=== PATIENT | male | born 1975 | race Caucasian/White ===

== ENCOUNTER 2024-10-01 09:47 | Emergency (ER) | payer SELFPAY ==
--- NOTE | 2024-10-01 10:37 | ERPHSYRPT ---
- History of Present Illness Time Seen by Provider: 10/01/24 10:26 Source: patient Exam Limitations: no limitations Physician History: Chest pain. Midsternal. Has been going on for 2 to 3 days. Family history of his father passing away from an CO. Patient is on blood pressure medication. Somewhat hypertensive here initially in triage 160/100. No falls or trauma. Patient has no known coronary artery disease. However he has had intermittent chest pain before. Diagnosed with atypical chest pain and hypertension. Therefore presents to the emergency department today. He has not tried anything to make it better or worse. He has not taken any aspirin today. He has taken his blood pressure medication as prescribed. Patient is taking PO well. Same number of urinations and defecations. The patient has no signs of altered mental status, nuchal rigidity, signs of meningitis. The patient is up-to-date on all vaccinations. Allergies/Adverse Reactions: No Known Drug Allergies Allergy (Unverified 10/01/24 10:25) Home Medications: Metoprolol Succinate 1 tab PO HS 10/01/24 [History] Telmisartan [Micardis] 1 tab PO DAILY 10/01/24 [History] - Nursing Vital Signs Nursing Vital Signs: Initial Vital Signs Pulse Rate 82 10/01/24 10:22 Respiratory Rate 18 10/01/24 10:22 Blood Pressure 152/104 10/01/24 10:22 O2 Sat by Pulse Oximetry 96 10/01/24 10:22 Pain Scale Pain Intensity 0 - Physical Exam Comments: 10/01/24 10:36 Review of Systems Constitutional: Negative for fever. HENT: Negative for congestion. Respiratory: Negative for shortness of breath. Cardiovascular: Midsternal chest pain Gastrointestinal: Negative for abdominal pain. Genitourinary: Negative for dysuria. Musculoskeletal: Negative for back pain. Skin: Negative for rash. Neurological: Negative for headaches. Psychiatric/Behavioral: Negative for behavioral problems. All other systems reviewed and are negative. Physical Exam Vitals signs and nursing note reviewed. Constitutional: Appearance: Patient is well-developed. HENT: Head: Normocephalic and atraumatic. Eyes: Conjunctiva/sclera: Conjunctivae normal. Neck: Musculoskeletal: Normal range of motion. Trachea: No tracheal deviation. Cardiovascular: Rate and Rhythm: Normal rate. Pulmonary: Effort: Pulmonary effort is normal. No respiratory distress. Abdominal: Palpations: Abdomen is soft. Musculoskeletal: General: No deformity. Skin: General: Skin is warm and dry. Neurological/ Psychiatric: Mental Status: Mental status, behavior, interaction with environment is appropriate for patient's age and condition - Course Nursing assessment & vital signs reviewed: Yes EKG Interpreted by Me: Sinus Rhythm (Sinus rhythm, rate 78, TN interval 178, QRS 80, QTc is 398, no STEMI) Ordered Tests: Active Orders 24 hr Category Date Time Status Chargeback Specialist STAT Care 10/01/24 10:27 Active EKG-ER Only STAT Care 10/01/24 10:26 Active IV Insertion STAT Care 10/01/24 10:26 Active CHEST 1 VIEW (PORTABLE) Stat Exams 10/01/24 10:26 Completed CBC W DIFF Stat Lab 10/01/24 10:50 Completed CK-Creatinine Phosphokinase Stat Lab 10/01/24 10:50 Completed CMP Stat Lab 10/01/24 10:50 Completed NT PRO BNPII Stat Lab 10/01/24 10:50 Completed TROPONIN Q4H Lab 10/01/24 10:50 Completed TROPONIN Q4H Lab 10/01/24 12:33 Completed TROPONIN Q4H Lab 10/01/24 18:30 Ordered Medication Summary Discontinued Medications Generic Name Dose Route Start Last Admin Trade Name Freq PRN Reason Stop Dose Admin Ketorolac Tromethamine 30 mg 10/01/24 10:27 10/01/24 11:16 Ketorolac Tromethamine 30 Mg/Ml Inj IV 10/01/24 10:28 30 mg STAT ONE Administration Ketorolac Tromethamine Confirm 10/01/24 11:15 Ketorolac Tromethamine 30 Mg/Ml Inj Administered 10/01/24 11:16 Dose 30 mg .ROUTE .STK-MED ONE Nitroglycerin 0.4 mg 10/01/24 10:26 Nitroglycerin 0.4 Mg (Ed) 0.4 Mg Tab.Subl SL 10/01/24 10:27 STAT ONE Ondansetron HCl 4 mg 10/01/24 10:26 Ondansetron Hcl 4 Mg/2 Ml Vial IV 10/01/24 10:27 STAT ONE Lab/Rad Data: Laboratory Result Diagrams 10/01/24 10:50 10/01/24 10:50 Laboratory Results 10/01/24 10/01/24 10/01/24 Range/Units 12:33 10:50 10:50 WBC (4.23-9.07) x10^3/uL RBC (4.63-6.08) x10^6/uL Hgb (13.7-17.5) g/dL Hct (40.1-51.0) % MCV (79.0-92.2) fL MCH (25.7-32.2) pg MCHC (32.3-36.5) g/dL RDW (11.6-14.4) % Plt Count (163-337) x10^3/uL MPV (9.4-12.4) fL Gran % (34.0-67.9) % Immature Gran % (Auto) (0.001-0.429) % Nucleat RBC Rel Count (0.00-0.2) % Eos # (Auto) (0.04-0.54) x10^3/uL Immature Gran # (Auto) (0.001-0.031) x10^3u/L Absolute Lymphs (auto) (1.32-3.57) x10^3/uL Absolute Monos (auto) (0.30-0.82) x10^3/uL Absolute Nucleated RBC (0.00-0.012) x10^3u/L Lymphocytes % (21.8-53.1) % Monocytes % (5.3-12.2) % Eosinophils % (0.8-7.0) % Basophils % (0.2-1.2) % Absolute Granulocytes (1.78-5.38) x10^3/uL Basophils # (0.01-0.08) x10^3/uL Sodium 138 (135-145) mmol/L Potassium 3.9 (3.5-5.1) mmol/L Chloride 102 (98-107) mmol/L Carbon Dioxide 27 (22-30) mmol/L Anion Gap 12.5 (5-15) MEQ/L BUN 10 (9-20) mg/dL Creatinine 0.91 (0.66-1.25) mg/dL Estimated GFR 104.6 ML/MIN Glucose 115 H (74-106) mg/dL Calcium 9.3 (8.4-10.2) mg/dL Total Bilirubin 0.60 (0.2-1.3) mg/dL AST 39 (17-59) U/L ALT 32 (0-50) U/L Alkaline Phosphatase 87 (38-126) U/L Creatine Kinase 47 L (55-170) U/L Troponin I < 0.012 < 0.012 (0.000-0.033) ng/mL NT-Pro-B Natriuret Pep < 20.0 (<300) pg/mL Serum Total Protein 8.2 (6.3-8.2) g/dL Albumin 4.6 (3.5-5.0) g/dL 10/01/24 Range/Units 10:50 WBC 6.6 (4.23-9.07) x10^3/uL RBC 5.08 (4.63-6.08) x10^6/uL Hgb 15.9 (13.7-17.5) g/dL Hct 46.0 (40.1-51.0) % MCV 90.6 (79.0-92.2) fL MCH 31.3 (25.7-32.2) pg MCHC 34.6 (32.3-36.5) g/dL RDW 12.1 (11.6-14.4) % Plt Count 201 (163-337) x10^3/uL MPV 9.4 (9.4-12.4) fL Gran % 69.1 H (34.0-67.9) % Immature Gran % (Auto) 0.3 (0.001-0.429) % Nucleat RBC Rel Count 0.0 (0.00-0.2) % Eos # (Auto) 0.11 (0.04-0.54) x10^3/uL Immature Gran # (Auto) 0.02 (0.001-0.031) x10^3u/L Absolute Lymphs (auto) 1.22 L (1.32-3.57) x10^3/uL Absolute Monos (auto) 0.64 (0.30-0.82) x10^3/uL Absolute Nucleated RBC 0.00 (0.00-0.012) x10^3u/L Lymphocytes % 18.4 L (21.8-53.1) % Monocytes % 9.7 (5.3-12.2) % Eosinophils % 1.7 (0.8-7.0) % Basophils % 0.8 (0.2-1.2) % Absolute Granulocytes 4.58 (1.78-5.38) x10^3/uL Basophils # 0.05 (0.01-0.08) x10^3/uL Sodium (135-145) mmol/L Potassium (3.5-5.1) mmol/L Chloride (98-107) mmol/L Carbon Dioxide (22-30) mmol/L Anion Gap (5-15) MEQ/L BUN (9-20) mg/dL Creatinine (0.66-1.25) mg/dL Estimated GFR ML/MIN Glucose (74-106) mg/dL Calcium (8.4-10.2) mg/dL Total Bilirubin (0.2-1.3) mg/dL AST (17-59) U/L ALT (0-50) U/L Alkaline Phosphatase (38-126) U/L Creatine Kinase (55-170) U/L Troponin I (0.000-0.033) ng/mL NT-Pro-B Natriuret Pep (<300) pg/mL Serum Total Protein (6.3-8.2) g/dL Albumin (3.5-5.0) g/dL - Progress Progress: improved Progress Note: 10/01/24 10:37 Differential diagnosis includes: PNA, STEMI, NSTEMI, other infection, musculoskeletal pain, pneumothorax - We'll obtain basic labs, fluids, EKG, troponin, chest x-ray - EKG shows no ST changes - my read - O2 saturations consistently greater than 95%. - CXR shows no pneumonia, pneumothorax - my read 10/01/24 13:30 Patient has had 2 negative troponins over ER stay here. Patient's blood pressure came down on its own without any intervention. Pain improved with Toradol. Less likely to be ACS today given negative troponins, no ischemic changes on EKG. Patient will still need close follow-up with PCP, possible blood pressure medication, continued further workup as an outpatient. I did describe all this to the patient. He states his understanding will call his PCP first thing tomorrow morning to make an appointment. Return here sooner for any new or changing symptoms. Counseled pt/family regarding: lab results, diagnosis, need for follow-up, rad results - Departure Departure Disposition: Home Clinical Impression: Chest pain Condition: Stable Critical Care Time: No Referrals: DOCTOR,NO FAMILY [Primary Care Provider] - Follow up/PCP as directed Instructions: Chest pain
[2024-10-01 10:39] VITALS: TEMP 97.7
[2024-10-01 11:01] LABS: Absolute Neutrophil Ct (ANC) 4.58 x10^3/uL (1.78-5.38); BASOPHIL % 0.8 % (0.2-1.2); Basophil (Absolute #) 0.05 x10^3/uL (0.01-0.08); Eosinophil % 1.7 % (0.8-7.0); Eosinophil (Absolute #) 0.11 x10^3/uL (0.04-0.54); Hemoglobin 15.9 g/dL (13.7-17.5); IMMATURE GRAN # 0.02 x10^3u/L (0.001-0.031); IMMATURE GRAN % 0.3 % (0.001-0.429); Lymphocyte (Absolute #) 1.22 x10^3/uL (1.32-3.57); Lymphocytes % 18.4 % (21.8-53.1); Mean Cell Volume 90.6 fL (79.0-92.2); Mean Corpuscular Hemoglobin 31.3 pg (25.7-32.2); Mean Corpuscular Hgb Concent. 34.6 g/dL (32.3-36.5); Mean Platelet Volume 9.4 fL (9.4-12.4); Monocyte (Absolute #) 0.64 x10^3/uL (0.30-0.82); Monocytes % 9.7 % (5.3-12.2); Neutrophil % 69.1 % (34.0-67.9); Platelet Count 201 x10^3/uL (163-337); Red Blood Count 5.08 x10^6/uL (4.63-6.08); Red Cell Distribution Width 12.1 % (11.6-14.4); White Blood Count 6.6 x10^3/uL (4.23-9.07)
[2024-10-01 11:14] LABS: ALBUMIN 4.6 g/dL (3.5-5.0); ANION GAP 12.5 MEQ/L (5-15); BILIRUBIN,TOTAL 0.6 mg/dL (0.2-1.3); Calcium 9.3 mg/dL (8.4-10.2); Creatinine 1 0.91 mg/dL (0.66-1.25); EST GLOMERULAR FILTRATION RATE 104.6 ML/MIN; Potassium 3.9 mmol/L (3.5-5.1); Total Protein 8.2 g/dL (6.3-8.2)
[2024-10-01] MEDS ORDERED: TORAdol 30 mg Injection ONE (11:15)
[2024-10-01 11:16] VITALS: O2SAT 96
[2024-10-01] MEDS: TORAdol 30 mg Injection IV ONE (11:16)
[2024-10-01 11:27] LABS: NT PRO BNPII < 20.0 pg/mL (<300); TROPONIN < 0.012 ng/mL (0.000-0.033)
--- NOTE | 2024-10-01 11:59 | XRAY ---
Indication: Pneumonia. Comparison: November 16, 2010 Portable chest again demonstrates normal heart, lungs, and bony thorax with incidental tiny calcified granulomas.
[2024-10-01 13:17] VITALS: BP 132/96; PULSE 75; RESP 28
[2024-10-01] MEDS: Zofran 4 MG/2 ML VIAL IV ONE (13:36)
[2024-10-01] MEDS: Nitrostat 0.4 MG (ED) SL ONE (13:36)
== END 2024-10-01 13:36 | disposition home or self-care (01) ==
LOC: ED 09:47
DX: R07.9 Chest pain, unspecified (principal); I10 Essential (primary) hypertension
CPT/HCPCS: 36415; 71045; 80053; 82550; 83880; 84484; 85025; 93005; 93041; 96374; 99284; 99285; J1885